=== PATIENT | female | born 1935 | race Asian ===

== ENCOUNTER 2020-06-14 09:27 | Emergency (ER) | payer MEDICARE, MEDICAID ==
[~2020-06-14] VITALS: Ht 157.5 cm; Wt 51.0 kg
[2020-06-14] MEDS ORDERED: ATOR1TAB19 PO (10:10)
[2020-06-14] MEDS ORDERED: OMEP-218 PO (10:10)
[2020-06-14] MEDS ORDERED: ATEN25TA PO (10:10)
[2020-06-14] MEDS ORDERED: ECOT81TA5 PO (10:10)
[2020-06-14] MEDS ORDERED: METF10004 PO (10:10)
--- NOTE | 2020-06-14 10:23 | ECGEPIP ---
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
[2020-06-14 10:35] LABS: BASO # 0.1 10^3/uL (0.0-0.2); BASO % 0.5 % (0.0-1.0); EOS # 0.3 10^3/uL (0.0-0.5); EOS % 3.2 % (0.0-3.0); HEMATOCRIT 29.4 % (36.0-47.0); HEMOGLOBIN 9.5 g/dl (12.0-15.5); LYMPH # 2.5 10^3/uL (1.5-5.0); MEAN CORPUSCULAR HEMOGLOBIN 32.9 pg (27.0-33.0); MEAN CORPUSCULAR HGB CONC 32.3 g/dl (32.0-36.5); MEAN CORPUSCULAR VOLUME 101.7 fl (80.0-96.0); MONO # 0.7 10^3/uL (0.0-0.8); MONO % 7.7 % (2.0-8.0); NEUTROPHILS # 5.9 10^3/uL (1.5-8.5); NEUTROPHILS % 62.3 % (36.0-66.0); PLATELET COUNT, AUTOMATED 242 10^3/uL (150-450); RED BLOOD COUNT 2.89 10^6/uL (4.00-5.40); WHITE BLOOD COUNT 9.6 10^3/uL (4.0-10.0)
--- NOTE | 2020-06-14 10:46 | REP ---
INDICATION: CHEST PAIN. COMPARISON: None TECHNIQUE: Portable FINDINGS: The technique utilized in obtaining the radiograph has magnified the cardiac silhouette and accentuated the interstitial markings. The superior mediastinal structures are midline. The cardiac silhouette is unremarkable in size, shape, and position. The diaphragmatic surfaces of the lungs are regular, and the costophrenic angles are clear. There is a minimal lingular opacity partially silhouetting out the inferior left heart border.. The imaged osseous structures are intact. IMPRESSION: Slight lingular opacity subsegmental atelectasis versus a small developing pneumonia. <Electronically signed by Tomer Pinto > 06/14/20 [id number]
[2020-06-14 11:16] LABS: BLOOD UREA NITROGEN 21 MG/DL (7-18); CREATININE FOR GFR 0.98 MG/DL (0.55-1.30); GLUCOSE, FASTING 146 MG/DL (70-100)
[2020-06-14 11:17] LABS: ALBUMIN 3.3 GM/DL (3.2-5.2); ALT/SGPT 8 U/L (12-78); BILIRUBIN,DIRECT < 0.1 MG/DL (0.0-0.2); BILIRUBIN,TOTAL 0.6 MG/DL (0.2-1.0); CALCIUM LEVEL 8.9 MG/DL (8.8-10.2); CARBON DIOXIDE LEVEL 23 MEQ/L (21-32); CHLORIDE LEVEL 107 MEQ/L (98-107); CK-MB VALUE MASS < 1.0 NG/ML (<3.6); CPK CREATINE PHOSPHOKINASE 45 U/L (26-192); GLOMERULAR FILTRATION RATE 57.7 (>32); LIPASE 259 U/L (73-393); MB/CK RELATIVE INDEX 2.22 (< OR =4); NT-PRO BNP 1466 PG/ML (<450); POTASSIUM SERUM 4.8 MEQ/L (3.5-5.1); SODIUM LEVEL 137 MEQ/L (136-145); TOTAL PROTEIN 7.5 GM/DL (6.4-8.2)
[2020-06-14] MEDS ORDERED: ISOVUE-370 76% 100ML VIAL As Ordered ONE (11:29)
[2020-06-14] MEDS ORDERED: FUROSEMIDE 40MG/4ML VIAL (J1940) IV ONE (11:30)
--- NOTE | 2020-06-14 12:34 | REP ---
INDICATION: r/o PE COMPARISON: None. TECHNIQUE: Axial contrast enhanced images from the thoracic inlet to the upper abdomen using pulmonary embolus technique with multiplanar re-formations. 75 ml Isovue 370 intravenous contrast material administered without complication. This CT examination was performed using the following dose reduction techniques: Automated exposure control, adjustment of mA and/or kv according to the patient's size, and use of iterative reconstruction technique. FINDINGS: Satisfactory enhancement of the pulmonary vasculature is achieved and no filling defects are identified to suggest pulmonary embolus. Thoracic aorta demonstrates atherosclerotic changes without aneurysm or dissection. No evidence for cardiomegaly or pericardial effusion. Atherosclerotic changes to the coronary arteries are identified. No significant adenopathy appreciated. Lung lowe demonstrate chronic appearing interstitial changes without acute consolidation. No effusion or pneumothorax. There appears to be a small 9 mm nodular density with subtle scarring/spiculation adjacent to the site of prior surgical intervention in the right upper lobe (series 402; image 42). No further area of consolidation, nodule or mass. Tracheobronchial tree is patent. Musculoskeletal structures demonstrate degenerative changes and evidence for prior sternotomy. IMPRESSION: No evidence for pulmonary embolus. No prior examinations available for comparison. A small 9 mm nodular density and spiculation is identified adjacent to an area of prior surgical intervention in the right upper lobe. Correlation is required to exclude the possibility of recurrent malignancy. <Electronically signed by Victor Hugo Cheatham > 06/14/20 [id number]
[2020-06-14 15:11] LABS: CK-MB VALUE MASS 3.2 NG/ML (<3.6); MB/CK RELATIVE INDEX 4.27 (< OR =4); TROPONIN I 1.59 NG/ML (< 0.10)
[2020-06-14 15:34] LABS: INR 0.99; PROTHROMBIN TIME 13.3 SECONDS (12.5-14.3)
[2020-06-14] MEDS ORDERED: HEPARIN SOD (PORCINE) 5000UNITS/ML 1ML VIAL/SYRINGE IV ONE (15:35)
[2020-06-14] MEDS ORDERED: HEPARIN DRIP 25,000 UNITS in IV 1 EA IV SCH (15:35)
[2020-06-14 16:13] LABS: RSV AMPLIFICATION NEGATIVE (NEGATIVE)
[2020-06-14 18:00] VITALS: BP 156/69
--- NOTE | 2020-06-16 12:24 | ECGEPIP ---
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
== END 2020-06-14 18:05 | disposition short-term general hospital (02) ==
LOC: EDBD 09:27 → M ED 09:27
DX: I21.9 Acute myocardial infarction, unspecified (principal); R91.1 Solitary pulmonary nodule; I21.4 Non-ST elevation (NSTEMI) myocardial infarction; I51.9 Heart disease, unspecified; E11.9 Type 2 diabetes mellitus without complications; I10 Essential (primary) hypertension; K21.9 Gastro-esophageal reflux disease without esophagitis; Z95.1 Presence of aortocoronary bypass graft
CPT/HCPCS: 71045; 71275; 80048; 80076; 82550; 82553; 83690; 83880; 84484; 85025; 85610; 85730; 87631; 93005; 93041; 94760; 96374; 99285; J1644; J1940; Q9967